=== PATIENT | female | born 1970 | race Caucasian/White ===

== ENCOUNTER 2017-02-21 13:36 | Inpatient (IN) | payer MEDICARE, OTHER ==
--- NOTE | ~2017-02-21 | PN ---
Unit #: [id number] #: [id number] Patient: JOHNATHAN STEINBERG [id number] [facility] [address] [place] [address] [id number] I MR#: [id number] NAME: JONHATHAN STEINBERG ROOM: P202 Age: 46 Sex: F Admission Date: 02/21/2017 : 1970 Attending Physician: Prince Pacheco M.D. Admitting Physician: Prince Pacheco M.D. Primary Care Physician: Tiny Doctor Not In System [facility] PROGRESS NOTES DATE 02/28/2017 DISCUSSION Ms. Steinberg is a 46-year-old female with mood disorder who was seen today and chart was reviewed and case was discussed with the staff. She has been anxious, withdrawn and rather seclusive to herself. Meanwhile, she has been cooperative with treatment recommendations as she has been taking the medications and tolerating them fairly well with no reported side effects. MENTAL STATUS EXAMINATION Middle-aged white female who was casually dressed with fair personal hygiene, appears to be in no acute distress or discomfort. She was awake and alert on interaction with intact orientation. Her mood was anxious with congruent affect. She denies any suicidal or homicidal ideations. Her insight and judgement remains We will monitor her response and make further adjustments as needed. 2. We will continue to follow up. Dictated by... Maynor Dominguez/jon TD: 03/01/2017 21:14 JOB #: [id number] Unit #: [id number] #: [id number] Patient: JOHNATHAN STEINBERG PROGRESS NOTES Page 1 of 1 X Prince Pacheco MD PROGRESS NOTE
--- NOTE | ~2017-02-21 | PN ---
Unit #: [id number] #: [id number] Patient: JOHNATHAN STEINBERG [id number] [facility] [address] [place] [address] [id number] I MR#: [id number] NAME: JOHNATHAN STEINBERG ROOM: P202 Age: 46 Sex: F Admission Date: 02/21/2017 : 1970 Attending Physician: Prince Pacheco M.D. Admitting Physician: Maynor Dominguez PROGRESS NOTES JOB NOTE: VERIFY DOS. SUBJECTIVE Ms. Steinberg is a 46-year-old white female, who was seen today and chart was reviewed and case was discussed with the staff. She has been anxious, withdrawn, rather seclusive to herself. Meanwhile, she has been cooperative with the treatment recommendations and has been taking the medications and tolerating them fairly well with no reported side effects. MENTAL STATUS EXAMINATION Middle-aged white female, who was casually dressed with fair personal hygiene, appears to be in no acute distress or discomfort. She was awake and alert on interaction with intact orientation. Her mood was anxious with a congruent affect. She denies any suicidal or homicidal ideations. Her insight and judgment remain slightly impaired. TREATMENT AND PLAN 1. We will continue her on her current treatment protocol. We will monitor her response to medications and make further adjustments as needed. 2. We will continue to follow up. Dictated by... Maynor Dominguez/jacqui TD: 02/27/2017 14:09 JOB #: [id number] [facility] PROGRESS NOTES Page 1 of 1 X Prince Pacheco MD PROGRESS NOTE
--- NOTE | ~2017-02-21 | PN ---
Unit #: [id number] #: [id number] Patient: JOHNATHAN STEINBERG [id number] [facility] [address] [place] [address] [id number] I MR#: [id number] NAME: JOHNATHAN STEINBERG ROOM: P202 Age: 46 Sex: F Admission Date: 02/21/2017 : 1970 Attending Physician: Prince Pacheco M.D. Admitting Physician: Prince Pacheco M.D. Primary Care Physician: Generic Doctor Not In System [facility] PROGRESS NOTES DATE OF SERVICE 02/23/2017 DISCUSSION Ms. Steinberg is a 46-year-old white female with substance abuse and mood disorder who was seen today. Chart was reviewed and case was discussed with the staff. She has been anxious, withdrawn, and seclusive to herself and does appears to be in some distress and discomfort as she was going to start (1) __. She has been taking the medications and tolerating them fairly well with no reported side effects. MENTAL STATUS EXAMINATION Young white female who is casually dressed with fair personal hygiene, appears to be in no acute distress or discomfort. She was awake and alert on interaction with intact orientation. Her mood is anxious with congruent affect. She denies any suicidal or homicidal ideations. Her insight and judgment remain slightly impaired. TREATMENT PLAN 1. We will continue her on her current treatment protocol. We will monitor her response and make further adjustments as needed. 2. We will continue to follow up. Dictated by... Prince Pacheco M.D. IAA/bzg TD: 02/25/2017 08:00 JOB #: [id number] [facility] PROGRESS NOTES Page 1 of 1 X Prince Pacheco MD X PROGRESS NOTE
--- NOTE | ~2017-02-21 | DS ---
Unit #: [id number] #: [id number] Patient: [facility] STEINBERG [id number] [facility] [address] [place] [address] [id number] I MR#: [id number] NAME: JOHNATHAN STEINBERG ROOM: P202 Age: 46 Sex: F Admission Date: 02/21/2017 : 1970 Discharge Date: 03/01/2017 Attending Physician: Prince Pacheco M.D. Primary Care Physician: Generic Doctor Not In System DISCHARGE SUMMARY IDENTIFYING DATA Ms. Steinberg is a 46-year-old single, disabled, white female who is a resident of [place], [place] and was brought to the hospital accompanied by her mother. DISCHARGE DIAGNOSES Psychiatric: Opioid dependence, moderate and acute withdrawals; bipolar disorder, most recent episode depressed, recurrent, moderate, without psychotic features. Medical: History of methicillin-resistant staphylococcus aureus. Stressors: Moderate psychosocial stressors. HISTORY OF PRESENT ILLNESS Please see initial psychiatric evaluation for details. PAST PSYCHIATRIC HISTORY Please see initial psychiatric evaluation for details. PAST MEDICAL HISTORY Please see initial psychiatric evaluation for details. HOSPITAL COURSE The patient was admitted to the adult chemical dependency unit at [facility] and was oriented to the hospital environment. Routine p.r.n. medications were initiated, and she was started back on her home medications including her Effexor and Wellbutrin, and Seroquel for the mood disorder was initiated, and opioid detox protocol was initiated as the patient was anxious, withdrawn, restless, though was able to show a decent therapeutic response to the medications and was able to come out of the detox without any complications and as such, it was decided that she will be discharged home and will continue treatment on an outpatient basis. DISCHARGE MEDICATIONS Effexor XR 75 mg in the morning for depression, Wellbutrin XL 100 mg in the morning for depression, Seroquel 100 mg at bedtime for bipolar, and Topamax 200 mg a day for bipolar. DISCHARGE CONDITION Stable. PROGNOSIS Fair. Unit #: [id number] #: [id number] Patient: JOHNATHAN STEINBERG Dictated by... Prince Pacheco M.D. IAA/modl TD: 03/01/2017 18:33 JOB #: [id number] DISCHARGE SUMMARY Page 1 of 1 X Prince Pacheco MD DISCHARGE SUMMARY
--- NOTE | ~2017-02-21 | PN ---
Unit #: [id number] #: [id number] Patient: JOHNATHAN STEINBERG [id number] [facility] [address] [place] [address] [id number] I MR#: [id number] NAME: JOHNATHAN STEINBERG ROOM: P202 Age: 46 Sex: F Admission Date: 02/21/2017 : 1970 Attending Physician: Prince Pacheco M.D. Admitting Physician: Prince Pacheco M.D. Primary Care Physician: Generic Doctor Not In System [facility] PROGRESS NOTES DATE OF SERVICE: 02/24/2017 SUBJECTIVE Ms. Steinberg is a 46-year-old white female, who was seen today and chart was reviewed, and case was discussed with the staff. She has been anxious, withdrawn, depressed, and rather seclusive to herself. Meanwhile, she has been cooperative with treatment recommendations and has been taking the medications and tolerating them fairly well with no reported side effects. MENTAL STATUS EXAMINATION Middle-aged white female, who was casually dressed with fair personal hygiene, appears to be in no acute distress or discomfort. She was awake and alert on interaction with intact orientation. Her mood was anxious with a congruent affect. She denies any suicidal or homicidal ideations, and also denies any auditory or visual hallucinations. Her insight and judgment remain slightly impaired. TREATMENT PLAN 1. We will continue her on her current medications and treatment protocol. We will monitor her response to the medications and make further adjustments as needed. 2. We will continue to follow up. Dictated by... Maynor Dominguez/jacqui TD: 02/25/2017 21:38 JOB #: [id number] [facility] PROGRESS NOTES Page 1 of 1 X Prince Pacheco MD PROGRESS NOTE
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
--- NOTE | ~2017-02-21 | PN ---
Unit #: [id number] #: [id number] Patient: JOHNATHAN STEINBERG [id number] [facility] [address] [place] [address] [id number] I MR#: [id number] NAME: JOHNATHAN STEINBERG ROOM: P202 Age: 46 Sex: F Admission Date: 02/21/2017 : 1970 Attending Physician: Prince Pacheco M.D. Admitting Physician: Prince Pacheco M.D. Primary Care Physician: Generic Doctor Not In System [facility] PROGRESS NOTES DATE OF SERVICE: 02/25/2017 SUBJECTIVE Ms. Steinberg is a 46-year-old white female who was seen today and chart was reviewed and the case was discussed with the staff. She was seen to anxious and withdrawn seclusive to herself. Meanwhile, she has been cooperative with the treatment recommendations and has been taking the medications and tolerating them fairly well with no reported side effects. MENTAL STATUS EXAMINATION Middle-aged white female, who was casually dressed with fair personal hygiene and appears to be in no acute distress or discomfort. She was awake and alert on interaction with intact orientation. Her mood was anxious with a congruent affect. She denies any suicidal or homicidal ideations we will monitor her response . Dictated by... Prince Pacheco M.D. LAURA/jacqui TD: 02/25/2017 12:25 JOB #: [id number] [facility] PROGRESS NOTES Page 1 of 1 X Prince Pacheco MD PROGRESS NOTE
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
--- NOTE | ~2017-02-21 | HP ---
Unit #: [id number] #: [id number] Patient: [facility] PHIPPS [id number] [facility] [address] [place] [address] [id number] I MR#: [id number] NAME: ELHAM PHIPPS ROOM: P202 Age: Sex: F Admission Date: 02/21/2017 : 1970 Attending Physician: Prince Pacheco M.D. Admitting Physician: Prince Pacheco M.D. Primary Care Physician: Generic Doctor Not In System HISTORY AND PHYSICAL HISTORY OF PRESENT ILLNESS Elham is a 46 year old admitted to [address] [place] [address] because of her drug use which includes heroin. PAST MEDICAL HISTORY Long history of illicit substance abuse to include snorting heroin. PAST SURGICAL HISTORY Nothing reported. ALLERGIES No known drug allergies. SOCIAL HISTORY Smokes 1 pack per day. Smokes rarely. Admits to a history of illicit substance abuse to include coke and snorting heroin. FAMILY HISTORY Medically noncontributory. REVIEW OF SYSTEMS CONSTITUTIONAL: No fever or chills. HEENT: Denies any sore throat, ear pain or runny nose. CARDIOVASCULAR: Denies chest pain, irregular heart rhythm or palpitations. CHEST: Denies shortness of breath or cough. No hemoptysis. GASTROINTESTINAL: Denies nausea, vomiting, diarrhea or chronic constipation. ENDOCRINE: Denies history of increased thirst or urination. No recent significant weight loss or gain. GENITOURINARY: Denies dysuria, frequency, or hematuria. SKIN: Denies any rashes. HEMATOLOGIC: Denies history of increased bleeding or bruising. MUSCULOSKELETAL: Denies any hot, swollen joints. No generalized muscle pain. NEUROLOGIC: Denies problems with vision or speech. No frequent, severe headaches. No numbness, tingling or weakness in any extremities. Denies loss of bladder or bowel control. CURRENT MEDICATIONS Detox protocol. PHYSICAL EXAMINATION GENERAL: Alert, well-nourished, in no apparent distress. Unit #: [id number] #: [id number] Patient: ELHAM PHIPPS VITAL SIGNS: Blood pressure 110/72, heart rate 80, respirations 16, temperature 98.6. WEIGHT: 110. HEIGHT: 5 feet 2 inches. SKIN: Warm and dry without rash or lesion. HEENT: Normocephalic. TMs not viewed. Oral and nasal passages clear. Conjunctivae clear. PERRLA. EOMs intact. NECK: Supple without lymphadenopathy or thyromegaly. HEART: Regular rate and rhythm without murmur. LUNGS: Clear. ABDOMEN: Soft, nontender. : Not done. EXTREMITIES: No evidence of cyanosis, clubbing or edema. Moves all without focal deficit. NEUROLOGICAL: Grossly within normal limits. Cranial Nerves: II: Visual rios are intact. III, IV AND : Extraocular movements are intact. Pupils are equal, round and reactive to light. V: Facial sensation is grossly normal. VII: Facial movements and expression are normal. VIII: Auditory acuity grossly intact. IX, X: Uvula is midline. Phonation is normal. XI: Patient shrugs shoulders and turns head normally. XII: Tongue protrudes in the midline. Sensory and Motor Function: Sensory and motor sensation is grossly normal. Motor: moves all extremities well. Coordination: Gait is normal. Deep Tendon Reflexes: Intact. IMPRESSION Psychiatric admission. RECOMMENDATIONS PSYCHIATRIC: Per psychiatrist. MEDICAL: See no contraindications to participate in facility's activities. MEDICAL PROGNOSIS Good. MEDICAL CONDITION Stable. Dictated by... Lucero Aguirre P.A.-C. for Maynor Crocker/amy TD: 02/22/2017 18:45 JOB #: [id number] Unit #: [id number] #: [id number] Patient: ELHAM PHIPPS HISTORY AND PHYSICAL Page 1 of 1 X Lucero Aguirre HISTORY AND PHYSICAL
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
[2017-02-22 09:44] LABS: BASOPHIL# 0.1 X10e3 (0-0.3); BASOPHIL% 0.8 % (0-2.5); DIFF IND NO; EOSINOPHIL# 0.4 X10e3 (0-0.7); EOSINOPHIL% 3.1 % (0.0-7.0); HEMATOCRIT 52.3 % (35.0-45.0); HEMOGLOBIN 17.3 gm/dL (12.0-16.0); LYMPHOCYTE# 3.9 X10e3 (1.0-3.5); LYMPHOCYTE% 28.9 % (17.0-45.0); MEAN CELL VOLUME 92.5 FL (83-96); MEAN CORPUSCULAR HEMOGLOBIN 30.7 PG (28-34); MEAN CORPUSCULAR HGB CONC 33.1 g/dL (30-36); MEAN PLATELET VOLUME 6.9 FL (6.5-11.5); MONOCYTE# 0.7 X10e3 (0-1.0); MONOCYTE% 4.9 % (3.0-12.0); NEUTROPHIL# 8.3 X10e3 (1.5-7.1); NEUTROPHIL% 62.3 % (40-75); PLATELET COUNT 367 X10e3 (140-420); RED BLOOD COUNT 5.65 X10e (3.90-5.30); RED CELL DISTRIBUTION WIDTH 14.1 % (11.0-15.5); WHITE BLOOD COUNT 13.4 X10e3 (4.0-10.5)
[2017-02-22 09:56] LABS: URINE APPEARANCE TURBID; URINE BILIRUBIN NEG (NEG); URINE BLOOD NEG (NEG); URINE COLOR DK YELLOW; URINE GLUCOSE NEG (NEG); URINE KETONE TRACE (NEG); URINE LEUKOCYTE ESTERASE NEG (NEG); URINE NITRATE NEG (NEG); URINE PH 5.5 (5-8); URINE PROTEIN NEG (NEG); URINE SPECIFIC GRAVITY 1.019 (1.003-1.035)
[2017-02-22 10:16] LABS: ALBUMIN SERUM 4.4 g/dL (3.5-5.0); BILIRUBIN,TOTAL 0.4 mg/dL (0.2-2.0); CALCIUM SERUM 10.2 mg/dL (8.4-10.2); CREATININE SERUM 0.9 mg/dL (0.6-1.4); GLOM FILT RATE Estimated 76.2 mL/min (>60); POTASSIUM 4.2 mmol/L (3.5-5.1); PROTEIN TOTAL SERUM 6.9 g/dL (6.0-8.3)
[2017-02-22 10:16] LABS: AMPHETAMINE NEG (NEG); BARBITURATES NEG (NEG); BENZODIAZEPINES NEG (NEG); COCAINE NEG (NEG); MARIJUANA NEG (NEG); OPIATES NEG (NEG); TRICYCLIC ANTIDEPRESSANTS NEG (NEG); U METHADONE NEG (NEG)
== END 2017-03-01 15:20 | disposition home or self-care (01) | DRG 897 ==
LOC: P2S 20:53
PROVIDERS: Psychiatry & Neurology Psychiatry
PROC: HZ2ZZZZ Detoxification Services for Substance Abuse Treatment (ICD-10-PCS; principal; 2017-02-21)
DX: F11.23 Opioid dependence with withdrawal (principal); F31.32 Bipolar disorder, current episode depressed, moderate; Z86.14 Personal history of Methicillin resistant Staphylococcus aureus infection; F17.210 Nicotine dependence, cigarettes, uncomplicated; Y04.0XXA Assault by unarmed brawl or fight, initial encounter; Y93.9 Activity, unspecified; Y92.238 Other place in hospital as the place of occurrence of the external cause; S00.11XA Contusion of right eyelid and periocular area, initial encounter
CPT/HCPCS: 70150; 70200; 80053; 80307; 81003; 84703; 85025; 86592